=== PATIENT | female | born 1975 | race Two or more races ===

== ENCOUNTER 2018-04-30 07:11 | Day surgery (SDC) | payer OTHER ==
[~2018-04-30] VITALS: Ht 160 cm; Wt 68.9 kg
[2018-04-30] VITALS (9 sets, daily range): BP systolic 128–144; BP diastolic 85–98
--- NOTE | 2018-04-30 07:42 | Short Stay Surgery H&P ---
History of Present Illness History of Present Illness Chief Complaint Abdominal pains/GERDs HPI Shara Coulter is a 42 year old female who was admitted on for GERD/abdominal pain Patient History Allergies: Coded Allergies: IBUPROFEN (Verified Allergy, Severe, 04/30/18) RASH PAST MEDICAL HISTORY: (1) H/O tubal ligation (2) Hypertension (3) Acute rheumatic arthritis Review of Systems Cardiovascular: Reports: no symptoms, hypertension Respiratory: Reports: no symptoms Skeletal: Reports: osteroarthritis Gastrointestinal: Reports: gastro esophageal reflux disease Genitourinary: Reports: no symptoms Neurologic: Reports: no symptoms Endocrine: Reports: no symptoms Hematologic: Reports: no symptoms Physical Exam Labs Laboratory Tests Test 04/30/18 07:20 Urine HCG, Qualitative Pending Skin: normal HENT: normal Heart: normal Lungs: normal Abdomen: abnormal Extremities: normal Genitourinary: normal Plan Plan of Care Upper GI. endoscopy and gastric biopsy Preop Interventions None. Summary of Findings See the reports Attestation Are the patient's medical conditions optimized for surgery? Attestation Response: yes Goldie Oropeza MD Apr 30, 2018 07:42
--- NOTE | 2018-04-30 07:43 | Pre-Procedure Note/Attestation ---
Pre-Procedure Note/Attestation Complete Prior to Procedure Planned Procedure: left Procedure Narrative: Examination of the upper GI tract via endoscopy Indications for Procedure Pre-Operative Diagnosis: R/O Peptic Ulcer/Gastritis Attestation I attest that I discussed the nature of the procedure; its benefits; risks and complications; and alternatives (and the risks and benefits of such alternatives ), prior to the procedure, with the patient (or the patient's legal sales representative health insurance). I attest that, if there was a reasonable possibility of needing a blood transfusion, the patient (or the patient's legal sales representative health insurance) was given the [facility] standardized written summary, pursuant to the [place] Blood Safety Act ([place] Health and Safety Code # 1645, as amended). I attest that I re-evaluated the patient just prior to the surgery and that there has been no change in the patient's H&P, except as documented below: Goldie Oropeza MD Apr 30, 2018 07:43
[2018-04-30] MEDS ORDERED: LOVASTATIN40 MG ORAL (07:46)
[2018-04-30] MEDS ORDERED: BUPROPION XL300 MG ORAL (07:46)
[2018-04-30] MEDS ORDERED: LR 1000ml ONE (08:00)
[2018-04-30] MEDS ORDERED: Propofol 200mg/20ml IV ONE (08:00)
[2018-04-30] MEDS ORDERED: Midazolam 2mg/2ml Inj ONE (08:00)
[2018-04-30] MEDS ORDERED: Lidocaine 1% MPF 10mg/ml 5ml ONE (08:00)
--- NOTE | 2018-04-30 08:14 | Anethesia Preoperative Eval ---
Anesthesia Pre-op PMH/ROS General Date of Evaluation: Apr 30, 2018 Time of Evaluation: 07:50 Anesthesiologist: Irene ASA Score: ASA 1 Mallampati Score Class I : Soft palate, uvula, fauces, pillars visible Class II: Soft palate, uvula, fauces visible Class III: Soft palate, base of uvula visible Class IV: Only hard plate visible Mallampati Classification: Class II Surgeon: Sandip Diagnosis: GERD Surgical Procedure: EGD Anesthesia History: none Family History: no anesthesia problems Allergies: Coded Allergies: IBUPROFEN (Verified Allergy, Severe, 04/30/18) RASH Medications: see eMAR Patient NPO?: Yes NPO Date: Apr 29, 2018 NPO Time: 22:00 Past Medical History Cardiovascular: Reports: other - hyperlipids Pulmonary: Denies: asthma, COPD, JERRY, other Gastrointestinal/Genitourinary: Reports: GERD Neurologic/Psychiatric: Reports: depression/anxiety Endocrine: Denies: DM, hypothyroidism, steroids, other HEENT: Denies: cataract (L), cataract (R), glaucoma, [place]AVAP[place]COTT (L), [place] (R), other Hematology/Immune: Denies: anemia, DVT, bleeding disorder, other Musculoskeletal/Integumentary: Reports: RA PSxH Narrative: tubal litigation, uterus ablation, right elbow ulnar nerve decompression Anesthesia Pre-op Phys. Exam Physician Exam Last Vital Signs Date Time Temp Pulse Resp B/P (MAP) Pulse Ox O2 Delivery O2 Flow Rate FiO2 04/30/18 07:45 97.7 78 18 130/91 100 Room Air Constitutional: NAD Neurologic: CN 2-12 intact Cardiovascular: RRR Respiratory: CTA Gastrointestinal: S/NT/ND Airway Exam Mallampati Score: Class II MO: full Neck: limited due to radiating pain from shoulders Teeth: intact Dentures: no upper, no lower Anesthesia Pre-op A/P Labs Urine Test Test 04/30/18 07:20 Urine HCG, Qualitative Negative (NEGATIVE) Studies Pre-op Studies: EKG Risk Assessment & Plan Assessment: A&Ox4 Plan: MAC Status Change Before Surgery: No Pre-Antibiotics Given Within 1 Hr of Incision: No Mariann Bonilla CRNA Apr 30, 2018 08:14
--- NOTE | 2018-04-30 08:14 | Endoscopy Procedure Note ---
Endoscopy Procedure Note General Indication for Procedure: Abdominal pain/GERDs/nausea and vomiting Procedures Performed: EGD - completely normal upper GI endoscopy as biopsy was done per random from gastric body. Specimen: yes Pt Tolerated Procedure Well: Yes Estimated Blood Loss: none Anesthesia Anesthesiologist: Ms. Mariann Bonilla CRNA Anesthesia: moderate sedation Medications Medication Given: see anesthesia record Inserted Devices Implant(s) used?: No Quality Quality of Bowel Preparation: Excellent Was there any complications?: No GI Core Measures 50 yrs or older w/o bx or poly: Not Applicable 10yrs. F/U not recommended: Not Applicable If not recommended, why?: Med reason:<3 yrs.: System Reason:<3 yrs.: Goldie Oropeza MD Apr 30, 2018 08:14
--- NOTE | 2018-04-30 08:15 | Immediate Post-Op Evaluation ---
Immediate Post-Op Evalulation Immediate Post-Op Evalulation Procedure: EGD Date of Evaluation: Apr 30, 2018 Time of Evaluation: 08:22 IV Fluids: LR 350 ml Blood Products: 0 Estimated Blood Loss: 0 Urinary Output: 0 Blood Pressure Systolic: 137 Blood Pressure Diastolic: 88 Pulse Rate: 84 Respiratory Rate: 18 O2 Sat by Pulse Oximetry: 100 Temperature (Fahrenheit): 97.4 Pain Score (1-10): 0 Nausea: No Vomiting: No Patient Status: awake, reacts Hydration Status: adequate Given Within 1 Hr of Incision: No - none per surgeon Mariann Bonilla CRNA Apr 30, 2018 08:15
--- NOTE | 2018-04-30 08:15 | Discharge Instructions ---
Discharge Instructions Discharge Instructions Follow up with: Visir the doctor after 2 weeks in his office. For Congestive Heart Failure Reminder Report to your physician any weight gain of 5 pounds or more in one week. Goldie Oropeza MD Apr 30, 2018 08:15
--- NOTE | 2018-04-30 08:32 | 48 Hour Post Anesthesia Eval ---
Post Anesthesia Evaluation Procedure: EGD Date of Evaluation: Apr 30, 2018 Time of Evaluation: 10:37 Blood Pressure Systolic: 144 0: 92 Pulse Rate: 70 Respiratory Rate: 18 Temperature (Fahrenheit): 97.5 O2 Sat by Pulse Oximetry: 100 Airway: patent Nausea: No Vomiting: No Pain Intensity: 0 Hydration Status: adequate Cardiopulmonary Status: WNL Mental Status/LOC: patient returned to baseline Follow-up care needed: patient intructions given Mariann Bonilla CRNA Apr 30, 2018 08:32
--- NOTE | 2018-04-30 15:00 | Operative Note - Dictated ---
DATE OF OPERATION: 04/30/2018 SURGEON: Goldie Oropeza M.D. PROCEDURE: Esophagogastroduodenoscopy with biopsy. PREOPERATIVE DIAGNOSES: 1. Abdominal pain. 2. History of chronic heartburn. 3. Nausea and vomiting spells. POSTOPERATIVE DIAGNOSIS: Completely normal upper GI endoscopy. Biopsy was taken from gastric body per random. MEDICATION USED: Per Ms. Irene CRNA. INSTRUMENT: GIF Olympus upper GI video endoscope. DESCRIPTION OF PROCEDURE: The patient after arriving endoscopy unit, was told about risks and benefits of the procedure, which she accepted and signed informed consent. At this time, she was put in the left lateral decubitus position. After adequate IV sedation, the scope was gently passed through the cricopharyngeal area, was lodged into the upper esophagus into the upper esophagus and gradually advanced towards gastroesophageal junction. The entire length of the esophagus looked normal. here was no any. There was no any evidence of inflammatory process, ulceration, exudate, stricture, etc. The scope was guided toward the GE junction, which also looked completely normal without any presence of Pavon's mucosa or hiatal hernia. At this time, the scope was advanced into the stomach. Gastric cavity was distended. Gastric folds came into view, which they looked completely normal. The areas of the fundus and the body and the antrum were examined in an enterprise software developer fashion as well as the retroflexion maneuver was also applied and the GE junction was examined in a closer level, which revealed no abnormalities. At this time, one random biopsy from gastric body was obtained and subsequently scope was passed through normal-looking pylorus. First and second portion of duodenum were also found to be completely normal. At this time, the scope was pulled out and the procedure was terminated. The patient tolerated the procedure well and left the endoscopy room in a good condition. Goldie Oropeza M.D. DR: CHASIDY JOB#: [id number] CC:
--- NOTE | 2018-04-30 16:00 | Pre-op HX & Phy Repo 2 SIG ---
DATE OF ADMISSION: 04/30/2018 HISTORY OF PRESENT ILLNESS: The patient is a 42-year-old female, who is being seen prior to undergoing the procedure for upper GI endoscopy for which she has been scheduled to receive for evaluation of her GI symptoms that she has been complaining subsequent to her work injury. Please also note that this examination has to be done before the patient undergoing the anesthesia today and therefore some time is spent for examination of this patient and review the medical records and dictation with the subject to billing. The patient reports that she is experiencing pain and discomfort over the upper part of the abdomen, which is quite uncomfortable. She has been injured at job site and subsequent to her work injury, she has received multiple medications including strong analgesics and nonsteroidal anti-inflammatory agents. She reports to me that the pains are intermittent in nature and recur from [id number] and occasionally radiates towards her upper part of the abdomen and chest area as well. Occasionally, she has also noticed that the pain radiates towards her back. She was working in [employer] and started to have symptoms basically around 2011 as reported. 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 The patient also is complaining of periods of nausea and occasional vomiting. She however has not had any upper GI or lower GI bleeding and she denies any difficulty swallowing such as dysphagia. She has been treated with medications such as Nexium and antacids for her problem of heartburn as well. She also denies having had any problem with the bowel movement. Denies diarrhea or constipation. PAST MEDICAL HISTORY: Hypertension and high cholesterol along with arthritis. SURGICAL HISTORY: The patient has had tubal ligation and ablation of the uterus, decompression of the ulnar nerve. ALLERGIES: She is allergic to ibuprofen. CHILDHOOD DISEASES: As usual. HABITS: She denies drinking alcohol or smoking cigarettes. FAMILY HISTORY: Basically nonsignificant. PRESENT MEDICATIONS: Wellbutrin and lovastatin. REVIEW OF SYSTEMS: Basically history of present illness. She denies having any particular problem with her genitourinary area. There is no history of diabetes or thyroid conditions. She only complains of occasional chest pain and palpitation. She denies having any shortness of breath or cough. PHYSICAL EXAMINATION: GENERAL: Reveals alert, oriented, very pleasant female, does not seem to be in any acute distress. She looks well developed and nourished. VITAL SIGNS: All stable HEENT: Normocephalic. Pupils equal in size and reactive to light and accommodation. No jaundice. Buccal cavity, tongue midline and well hydrated. NECK: Supple. No JVD or thyromegaly. CHEST: Clear to auscultation and percussion. No rales or rhonchi. HEART: S1, S2 normal. Regular rhythm. No gallops or murmur. ABDOMEN: Soft. There is tenderness over the upper part of the abdomen, but no rebound. There is no hepatosplenomegaly. No palpable mass. EXTREMITIES: Within normal limits. No pretibial edema, cyanosis, or clubbing. CENTRAL NERVOUS SYSTEM: Grossly normal. PRELIMINARY PREOPERATIVE IMPRESSION: 1. Epigastric pain of uncertain etiology, rule out NSAID induced gastropathy such as peptic ulcer disease, gastritis, duodenitis, rule out esophagitis. 2. History of bodily injury, work related. 3. Hypertension. 4. Hyperlipidemia. RECOMMENDATION: The patient at this time is quite stable to undergo the procedure for upper GI endoscopy and received anesthesia as required. She understands the risks and benefits and will sign the consent. Said Joleen Oropeza DR: AMAURY JOB#: [id number] CC:
== END 2018-04-30 09:20 | disposition home or self-care (01) ==
LOC: GAS 07:11
DX: K29.50 Unspecified chronic gastritis without bleeding (principal); K21.9 Gastro-esophageal reflux disease without esophagitis; I10 Essential (primary) hypertension; E78.5 Hyperlipidemia, unspecified; M06.9 Rheumatoid arthritis, unspecified; F32.9 Major depressive disorder, single episode, unspecified; F41.9 Anxiety disorder, unspecified; Z88.6 Allergy status to analgesic agent; Z98.51 Tubal ligation status
CPT/HCPCS: 43239; 81025; J2250; J2704; 94003; 94150